=== PATIENT | female | born 1965 | race Caucasian/White ===

== ENCOUNTER 2018-01-25 16:41 | Emergency (ER) | payer MEDICARE, MEDICAID ==
[2018-01-25 17:06] VITALS: BP 110/47
[2018-01-25] MEDS ORDERED: Sodium Chloride 0.9% 10 ML Syringe FLUSH PRN (17:45)
[2018-01-25] MEDS ORDERED: Ondansetron 4 MG/2 ML SDV IVPUSH ONE (17:45)
[2018-01-25] MEDS ORDERED: HYDROmorphone 0.5 MG/0.5 ML SYRINGE IVPUSH ONE ×2 (17:45→20:00)
[2018-01-25] MEDS ORDERED: Sodium Chloride 0.9% 1,000 ML IV ONE (17:46)
--- NOTE | 2018-01-25 17:57 | EDM.PDOC ---
ED HPI GENERAL MEDICAL PROBLEM - General Chief Complaint: Flank Pain Stated Complaint: R SIDE BACK PAIN Time Seen by Provider: 01/25/18 17:45 Source of Information: Reports: Patient History Limitations: Reports: No Limitations - History of Present Illness INITIAL COMMENTS - FREE TEXT/NARRATIVE: Patient is a 52-year-old female presents ED complaining of right lower back pain , right flank pain, and pain into her right loin area. She is mildly nauseated. Bothering all week worse today. She's been taking ibuprofen with little relief. She does have a history kidney stones but states the symptoms are mildly different. She has no pain with urination, increased frequency, decrease amount , or abnormal vaginal discharge. She does have chronic diarrhea withno acute changes with no blood present. She is mildly nauseated with onset with no emesis. There's been no documented fever. She's had her appendix removed. She has old female organs along with the gallbladder. There has been no activities or recent trauma that precipitated this pain. Past medical history includes anxiety, depression, hypothyroid, chronic diarrhea , GERD, kidney stones, bronchitis, and chronic pain. Current medications include Seroquel, Loxitane, tramadol, Lyrica, Prilosec, bladder incontinence Right Flank Pain Score (Numeric/FACES): 8 - Related Data Allergies Allergy/AdvReac Type Severity Reaction Status Date / Time No Known Allergies Allergy Verified 02/21/16 15:14 Home Meds: Home Meds Pregabalin [Lyrica] 100 mg PO TID 02/14/15 [History] Dextran 70/Hypromellose [Artificial Tears] 1 drop OP DAILY PRN 02/21/16 [History ] FLUoxetine HCl [Fluoxetine HCl] 40 mg PO DAILY 02/21/16 [History] Levothyroxine [Synthroid] 50 mcg PO ACBREAKFAST 02/21/16 [History] QUEtiapine Fumarate [Seroquel] 200 mg PO DAILY 02/21/16 [History] traMADol [Ultram] 50 mg PO Q6H PRN 02/21/16 [History] Omeprazole Magnesium [Prilosec Otc] 20 mg PO DAILY 01/25/18 [History] Past Medical History Respiratory History: Reports: Bronchitis, Recurrent Gastrointestinal History: Reports: Chronic Diarrhea, GERD Genitourinary History: Reports: Renal Calculus, UTI, Recurrent Psychiatric History: Reports: Anxiety, Depression Endocrine/Metabolic History: Reports: Hypothyroidism Hematologic History: Reports: Anemia - Past Surgical History GI Surgical History: Reports: Appendectomy Musculoskeletal Surgical History: Reports: Other (See Below) Other Musculoskeletal Surgeries/Procedures:: right total hip replacement Social & Family History - Tobacco Use Smoking Status *Q: Never Smoker Second Hand Smoke Exposure: No - Caffeine Use Caffeine Use: Reports: Tea - Alcohol Use Number of Drinks Per Day: 10 - Recreational Drug Use Recreational Drug Use: No Drug Use in Last 12 Months: No ED ROS GENERAL - Review of Systems Review Of Systems: See Below Constitutional: Denies: Fever, Chills, Malaise, Weakness, Decreased Appetite HEENT: Reports: No Symptoms Respiratory: Reports: No Symptoms Cardiovascular: Reports: No Symptoms GI/Abdominal: Reports: Abdominal Pain (Pain in the right groin), Diarrhea ( Chronic). Denies: Black Stool, Bloody Stool, Decreased Appetite, Hematemesis, Hematochezia, Nausea, Vomiting : Reports: No Symptoms Musculoskeletal: Reports: Back Pain (Right-sided low back pain) Skin: Reports: No Symptoms Neurological: Reports: No Symptoms ED EXAM,LOWER BACK PAIN/INJURY - Physical Exam Exam: See Below Exam Limited By: No Limitations General Appearance: Alert, WD/WN, Moderate Distress Ears: Hearing Grossly Normal Nose: Normal Inspection Throat/Mouth: Normal Voice, No Airway Compromise Head: Atraumatic, Normocephalic Neck: Normal Inspection, Supple Respiratory/Chest: No Respiratory Distress, Lungs Clear, Normal Breath Sounds, No Accessory Muscle Use, Chest Non-Tender Cardiovascular: Normal Peripheral Pulses, Regular Rate, Rhythm GI/Abdominal: Normal Bowel Sounds, Soft, Non-Tender, No Organomegaly Back Exam: No: CVA Tenderness (L), CVA Tenderness (R) Neurological: Alert, Normal Mood/Affect, Normal Dorsiflexion, CN II-XII Intact, Normal Plantar Flexion Psychiatric: Normal Affect, Normal Mood Skin Exam: Warm, Dry, Intact, Normal Color, No Rash Course - Vital Signs Last Recorded V/S: Last Vital Signs Temp 97.8 F 01/25/18 17:04 Pulse 65 01/25/18 17:04 Resp 20 01/25/18 17:04 BP 110/47 L 01/25/18 17:04 Pulse Ox 99 01/25/18 17:04 - Orders/Labs/Meds Orders: Active Orders 24 hr Category Date Time Status Peripheral IV Care [RC] . DIRECTED Care 01/25/18 17:45 Active Sodium Chloride 0.9% [Normal Saline] 1,000 ml Med 01/25/18 17:46 Active IV ONETIME Sodium Chloride 0.9% [Saline Flush] Med 01/25/18 17:45 Active 10 ml FLUSH ASDIRECTED PRN Peripheral IV Insertion Adult [OM.PC] Stat Oth 01/25/18 17:45 Ordered Medication Orders Sodium Chloride (Normal Saline) 1,000 mls @ 250 mls/hr IV ONETIME ONE Stop: 01/25/18 21:45 Last Admin: 01/25/18 18:16 Dose: 250 mls/hr Sodium Chloride (Saline Flush) 10 ml FLUSH ASDIRECTED PRN PRN Reason: Keep Vein Open Last Admin: 01/25/18 18:16 Dose: 10 ml Labs: Laboratory Tests 01/25/18 01/25/18 01/25/18 Range/Units 17:10 18:18 18:18 WBC 6.87 (3.98-10.04) K/mm3 RBC 4.29 (3.98-5.22) M/mm3 Hgb 10.3 L (11.2-15.7) gm/L Hct 32.8 L (34.1-44.9) % MCV 76.5 L (79.4-94.8) fl MCH 24.0 L (25.6-32.2) pg MCHC 31.4 L (32.2-35.5) g/dl RDW Std Deviation 51.4 H (36.4-46.3) fL Plt Count 296 (182-369) K/mm3 MPV 10.5 (9.4-12.3) fl Neut % (Auto) 52.8 (34.0-71.1) % Lymph % (Auto) 36.0 (19.3-51.7) % [place] % (Auto) 10.5 (4.7-12.5) % Eos % (Auto) 0.3 L (0.7-5.8) Baso % (Auto) 0.1 (0.1-1.2) % Neut # (Auto) 3.63 (1.56-6.13) K/mm3 Lymph # (Auto) 2.47 (1.18-3.74) K/mm3 [place] # (Auto) 0.72 H (0.24-0.36) K/mm3 Eos # (Auto) 0.02 L (0.04-0.36) K/mm3 Baso # (Auto) 0.01 (0.01-0.08) K/mm3 Sodium 139 (136-145) mEq/L Potassium 4.4 (3.5-5.1) mEq/L Chloride 105 (98-107) mEq/L Carbon Dioxide 22 (21-32) mEq/L Anion Gap 16.4 H (5-15) BUN 21 H (7-18) mg/dL Creatinine 0.9 (0.55-1.02) mg/dL Est Cr Clr Drug Dosing 71.91 mL/min Estimated GFR (MDRD) > 60 (>60) mL/min BUN/Creatinine Ratio 23.3 H (14-18) Glucose 83 (74-106) mg/dL Calcium 8.2 L (8.5-10.1) mg/dL Total Bilirubin 0.3 (0.2-1.0) mg/dL AST 29 (15-37) U/L ALT 21 (14-59) U/L Alkaline Phosphatase 95 (46-116) U/L C-Reactive Protein < 0.2 (<1.0) mg/dL Total Protein 7.8 (6.4-8.2) g/dl Albumin 3.2 L (3.4-5.0) g/dl Globulin 4.6 gm/dL Albumin/Globulin Ratio 0.7 L (1-2) Urine Color Yellow (Yellow) Urine Appearance Clear (Clear) Urine pH 5.5 (5.0-8.0) Ur Specific [place] 1.025 (1.005-1.030) Urine Protein Negative (Negative) Urine Glucose (UA) Negative (Negative) Urine Ketones Trace H (Negative) Urine Occult Blood Negative (Negative) Urine Nitrite Negative (Negative) Urine Bilirubin Negative (Negative) Urine Urobilinogen 0.2 (0.2-1.0) Ur Leukocyte Esterase Negative (Negative) Urine RBC 0-5 (0-5) /hpf Urine WBC 0-5 (0-5) /hpf Ur Epithelial Cells 20-30 H (0-5) /hpf Urine Bacteria Rare (FEW) /hpf Urine Mucus Not seen (FEW) /hpf Meds: Medications Generic Name Dose Route Start Last Admin Trade Name Freq PRN Reason Stop Dose Admin Sodium Chloride 1,000 mls @ 250 mls/hr 01/25/18 17:46 01/25/18 18:16 Normal Saline IV 01/25/18 21:45 250 mls/hr ONETIME ONE Administration Sodium Chloride 10 ml 01/25/18 17:45 01/25/18 18:16 Saline Flush FLUSH 10 ml ASDIRECTED PRN Administration Keep Vein Open Discontinued Medications Generic Name Dose Route Start Last Admin Trade Name Freq PRN Reason Stop Dose Admin Hydromorphone HCl 0.5 mg 01/25/18 17:45 01/25/18 18:15 Dilaudid IVPUSH 01/25/18 17:46 0.5 mg ONETIME ONE Administration Hydromorphone HCl 0.5 mg 01/25/18 20:00 Dilaudid IVPUSH 01/25/18 20:01 ONETIME ONE Ondansetron HCl 4 mg 01/25/18 17:45 01/25/18 18:16 Zofran IVPUSH 01/25/18 17:46 4 mg ONETIME ONE Administration - Re-Assessments/Exams Free Text/Narrative Re-Assessment/Exam: IV established with normal saline 250 mL per hour, Dilaudid 0.5 mg IVP, and Zofran 4 mg IVP. UA was obtained prior to evaluation trace ketones, epithelial cells 20-30 suggesting contamination. Initial labs and studies will be CBC, chem 14, CRP, and abdomen and pelvis without contrast CT per renal stone protocol. I believe patient may have a kidney stone is passing. CBC and chemistry panel did not reveal any concerning findings. CT the abdomen and pelvis impression: 4.5 cm abnormality within the pelvis most likely due to an adnexal cyst or ovarian cyst. Pelvic ultrasound is recommended which can be completed not emergently to further evaluate. Gallstones or other insult findings. No renal calculi or ureteral dilatation is seen. No discrete ureteral calculus is seen. 1950 Reassessment, patient states she got relief of the pain with the Dilaudid. Pain has slowly increased. Pain is isolated at this point to the right lateral mid back. Patient states now Feels as if it is muscle pain. With gentle palpation there is some pinpoint tenderness noted. This is different from initial examination. Suspect it may be muscle related. Will discharge patient home with instructions as documented. Departure - Departure Time of Disposition: 20:02 Disposition: Home, Self-Care 01 Condition: Good Clinical Impression: Right inguinal pain Low back pain Qualifiers: Chronicity: acute Back pain laterality: right Sciatica presence: without sciatica Qualified Code(s): M54.5 - Low back pain - Discharge Information Instructions: Flank Pain, [id number], Pain Medicine Instructions, Easy-to- Read Referrals: PCP,None [Primary Care Provider] - Forms: ED Department Discharge, ED Return to Work/School Form Additional Instructions: CT abdomen and pelvis revealed 4.5 cm abnormality within the pelvis most likely due to adnexal cyst or ovarian cyst. Pelvic ultrasound is recommended. This is been ordered. Please see a provider at [facility] this week for results. You will be contacted for an appointment this week to have the ultrasound completed. For pain continue to take [place] one tab every 6 hours as needed. Utilize warm compresses and ice in alternating fashion for pain. Utilize Gentle massage to the affected area along with Biofreeze or icy hot as well. Do not drive this evening since receiving a sedative medication. Do not drive while taking the [place]. Return to the ED if you develop any new or worsening symptoms. - My Orders Last 24 Hours: My Active Orders 01/25/18 17:45 Peripheral IV Care [RC] . DIRECTED Sodium Chloride 0.9% [Saline Flush] 10 ml FLUSH ASDIRECTED PRN Peripheral IV Insertion Adult [OM.PC] Stat 01/25/18 17:46 Sodium Chloride 0.9% [Normal Saline] 1,000 ml IV ONETIME - Assessment/Plan Last 24 Hours: My Active Orders 01/25/18 17:45 Peripheral IV Care [RC] . DIRECTED Sodium Chloride 0.9% [Saline Flush] 10 ml FLUSH ASDIRECTED PRN Peripheral IV Insertion Adult [OM.PC] Stat 01/25/18 17:46 Sodium Chloride 0.9% [Normal Saline] 1,000 ml IV ONETIME
--- NOTE | 2018-01-25 18:31 | CT ---
CT abdomen and pelvis Technique: Multiple axial sections were obtained from above the kidneys inferiorly to the pubic symphysis. Intravenous and oral contrast not utilized. Study performed as a ureteral stone protocol. Findings: Minimal portion of the posterior lung bases appear clear. Kidneys show no abnormal calcifications. No ureteral dilatation is seen. No ureteral stone is identified. Some portions of the ureter are not seen within the lower pelvis due to artifact from hip prosthesis. Visualized portions of the lower liver and spleen appears within normal limits. Previous gastric surgery is noted. Slight increased density which is felt compatible with gallstones are seen within the gallbladder. No abnormality is appreciated within the pancreas. Aorta shows no aneurysmal dilatation. No retroperitoneal adenopathy or mesenteric abnormalities are seen. Low-density finding is noted within the mid to right pelvis which measures 4.5 cm most likely due to an adnexal cyst or ovarian cyst. No additional pelvic abnormality is appreciated. Appendix is not visualized. No free fluid or inflammatory change is appreciated. Bone window settings were reviewed which shows severe disc space narrowing at L3-L4 and L4-L5 with vacuum phenomena and degenerative endplate sclerosis. Posterior and anterior osteophytes are seen at these levels. Degenerative change is also noted within the apophyseal joints at these levels. Impression: 1. 4.5 cm abnormality within the pelvis most likely due to adnexal cyst or ovarian cyst. Pelvic ultrasound is recommended (which can be done non-emergently) to further evaluate. 2. Gallstones and other incidental findings. 3. No renal calculi or ureteral dilatation is seen. No discrete ureteral calculus is seen. Diagnostic code #9
== END 2018-01-25 20:30 | disposition home or self-care (01) ==
LOC: JD.ED 16:41
DX: M54.5 Low back pain (principal); R10.31 Right lower quadrant pain; M54.6 Pain in thoracic spine; K21.9 Gastro-esophageal reflux disease without esophagitis; F32.9 Major depressive disorder, single episode, unspecified; E03.9 Hypothyroidism, unspecified; Z96.641 Presence of right artificial hip joint; Z79.899 Other long term (current) drug therapy
CPT/HCPCS: 36415; 74176; 80053; 81001; 85025; 86140; 96361; 96374; 96375; 96376; 99284; J1170; J2405; J7040; J7050

== ENCOUNTER 2020-01-13 09:41 | Day surgery (SDC) | payer MEDICARE, MEDICAID ==
[~2020-01-13 09:41] MED LIST: Lidocaine 1%/Sod Bicarbonate in NS 8.4% 1 ML Syringe IDERM PRN; Sodium Chloride 0.9% 10 ML Syringe FLUSH PRN
[2020-01-13] MEDS ORDERED: Propofol 200 MG/20 ML SDV ONE (09:54)
[2020-01-13] MEDS ORDERED: Lidocaine 1% 6 ML ONE (09:55)
[2020-01-13] MEDS ORDERED: fentaNYL 250 MCG/5 ML SDV ONE (09:55)
[2020-01-13] MEDS ORDERED: Midazolam 1 MG/ML 2 ML SDV ONE ×2 (09:55→11:37)
[2020-01-13] MEDS: Lactated Ringers 1,000 ML IV SCH ×2 (10:35→13:30)
[2020-01-13] MEDS ORDERED: Bupivacaine 0.5%/EPINEPHrine 1:200,000 50 ML MDV ONE (10:48)
[2020-01-13] MEDS ORDERED: Scopolamine 1.5 MG Transdermal Patch TOP ONE (11:22)
--- NOTE | 2020-01-13 11:28 | PCM.PREANE ---
Preanesthetic Assessment - Procedure Proposed Procedure: EGD and Laparoscopic Cholecystectomy - Anesthesia/Transfusion/Family Hx Anesthesia History: Prior Anesthesia Reaction Type of Anesthesia Reaction: Excessive Nausea/Vomiting Family History of Anesthesia Reaction: No Type of Transfusion Reactions: Reports: Unknown - Review of Systems General: No Symptoms Pulmonary: No Symptoms Cardiovascular: No Symptoms Gastrointestinal: Abdominal Pain, Nausea, Other (GERD. Gastric bypass surgery 5 years ago. Gastric Ulcer following bypass surgery. ) Neurological: Pre-Existing Deficit (Fibromyalgia) Other: Reports: Thyroid Problems (Hypothyroidism), Depression, Anxiety - Physical Assessment NPO Status Date: 01/12/20 NPO Status Time: 19:00 Vital Signs: Last Vital Signs Temp 36.7 C 01/13/20 10:20 Pulse 58 L 01/13/20 10:20 Resp 16 01/13/20 10:20 BP 110/69 01/13/20 10:20 Pulse Ox 96 01/13/20 10:20 Height: 1.7 m Weight: 93.44 kg ASA Class: 2 Mental Status: Alert & Oriented x3 Airway Class: Mallampati = 2 Dentition: Reports: Normal Dentition Thyro-Mental Finger Breadths: 3 Mouth Opening Finger Breadths: 3 ROM/Head Extension: Full Lungs: Clear to Auscultation, Normal Respiratory Effort Cardiovascular: Regular Rate, Regular Rhythm - Lab Values: Laboratory Last Values Urine HCG, Qual Negative (NEGATIVE) 01/13/20 10:17 - Allergies Allergies/Adverse Reactions: Allergies Allergy/AdvReac Type Severity Reaction Status Date / Time acetaminophen [From [place]] Allergy Hives Verified 01/12/20 15:56 hydrocodone [From [place]] Allergy Hives Verified 01/12/20 15:56 - Acknowledgements Anesthesia Type Planned: General Anesthesia Pt an Appropriate Candidate for the Planned Anesthesia: Yes Alternatives and Risks of Anesthesia Discussed w Pt/Guardian: Yes Pt/Guardian Understands and Agrees with Anesthesia Plan: Yes PreAnesthesia Questionnaire HEENT History: Reports: Allergic Rhinitis, Impaired Vision Cardiovascular History: Reports: None Respiratory History: Reports: Bronchitis, Recurrent Gastrointestinal History: Reports: Chronic Diarrhea, GERD, Other (See Below) Other Gastrointestinal History: epigastric pain, gastric ulcer Genitourinary History: Reports: Renal Calculus, UTI, Recurrent, Other (See Below ) Other Genitourinary History: pessary maintenence, rectocele, frequency 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 (See Below) Other OB/BYN History: ovarian cyst, menorrhagia Musculoskeletal History: Reports: Arthritis, RA Neurological History: Reports: Other (See Below) Other Neuro History: dizziness, low back pain Psychiatric History: Reports: Anxiety, Depression Endocrine/Metabolic History: Reports: Hypothyroidism Hematologic History: Reports: Anemia, Iron Deficiency Immunologic History: Reports: SLE Oncologic (Cancer) History: Reports: None Dermatologic History: Reports: Other (See Below) Other Dermatologic History: itching, pruritis - Past Surgical History Head Surgeries/Procedures: Reports: None HEENT Surgical History: Reports: Cataract Surgery, Naso-Sinus Surgery Cardiovascular Surgical History: Reports: None Respiratory Surgical History: Reports: None GI Surgical History: Reports: Appendectomy, Bariatric Procedure Female Surgical History: Reports: Section Endocrine Surgical History: Reports: None Neurological Surgical History: Reports: None Musculoskeletal Surgical History: Reports: Hip Replacement, Other (See Below) Other Musculoskeletal Surgeries/Procedures:: right total hip replacement Oncologic Surgical History: Reports: None Dermatological Surgical History: Reports: None - SUBSTANCE USE Smoking Status *Q: Former Smoker - HOME MEDS Home Medications: Home Meds Pregabalin [Lyrica] 100 mg PO TID 02/14/15 [History] FLUoxetine HCl [Fluoxetine HCl] 80 mg PO DAILY 02/21/16 [History] Levothyroxine [Synthroid] 50 mcg PO ACBREAKFAST 02/21/16 [History] traMADol [Ultram] 50 mg PO Q6H PRN 02/21/16 [History] Omeprazole Magnesium [Prilosec Otc] 20 mg PO DAILY 01/25/18 [History] Iron Polysaccharide Complex/D3 [Novaferrum 125 Liquid] 5 ml PO DAILY 01/12/20 [ History] Mirabegron [Myrbetriq] 50 mg PO DAILY 01/12/20 [History] hydrOXYzine HCL [hydrOXYzine] 25 - 50 mg PO Q4H PRN 01/12/20 [History] - CURRENT (IN HOUSE) MEDS Current Meds: Current Medications Lactated Ringer's (Ringers, Lactated) 1,000 mls @ 125 mls/hr IV ASDIRECTED [place]ICA Stop: 01/13/20 23:00 Last Admin: 01/13/20 10:35 Dose: 125 mls/hr Lidocaine/Sodium Bicarbonate (Buffered Lidocaine 1% In Ns 8.4%) 0.25 ml IDERM ONETIME PRN PRN Reason: Prior to IV Start Stop: 01/13/20 18:00 Last Admin: 01/13/20 10:34 Dose: 0.25 ml Sodium Chloride (Saline Flush) 10 ml FLUSH ASDIRECTED PRN PRN Reason: Keep Vein Open Stop: 01/13/20 18:00 Discontinued Medications Bupivacaine HCl/Epinephrine Bitart (Marcaine 0.5%/Epinephrine 1:200,000) Confirm Administered Dose 50 ml .ROUTE .STK-MED ONE Stop: 01/13/20 10:49 Fentanyl (Sublimaze) Confirm Administered Dose 250 mcg .ROUTE .STK-MED ONE Stop: 01/13/20 09:56 Lidocaine HCl (Xylocaine-Mpf 1%) Confirm Administered Dose 6 mls @ as directed .ROUTE .STK-MED ONE Stop: 01/13/20 09:56 Midazolam HCl (Versed 1 Mg/Ml) Confirm Administered Dose 2 mg .ROUTE .STK-MED ONE Stop: 01/13/20 09:56 Propofol (Diprivan 20 Ml) Confirm Administered Dose 200 mg .ROUTE .STK-MED ONE Stop: 01/13/20 09:55
[2020-01-13] MEDS ORDERED: Succinylcholine/Normal Saline 100 MG/5 ML Syringe ONE (11:39)
[2020-01-13] MEDS ORDERED: HYDROmorphone 0.5 MG/0.5 ML Syringe ONE (11:39)
[2020-01-13] MEDS ORDERED: ceFAZolin 1 GM Vial ONE (11:44)
[2020-01-13] MEDS ORDERED: Lactated Ringers 1,000 ML ONE (12:00)
[2020-01-13] MEDS ORDERED: HYDROmorphone 0.5 MG/0.5 ML Syringe IVPUSH PRN (12:13)
[2020-01-13] MEDS ORDERED: fentaNYL 100 MCG/2 ML SDV IVPUSH PRN (12:13)
[2020-01-13] MEDS ORDERED: Ondansetron 4 MG/2 ML SDV ONE (12:19)
[2020-01-13] MEDS ORDERED: Neostigmine Methylsulfate 1 MG/ML 5 ML Syringe ONE (12:42)
--- NOTE | 2020-01-13 13:02 | PCM.PRNOTE ---
- Free Text/Narrative Note: Operative Report Operation: laparoscopic cholecystectomy followed by diagnostic esophagogastrojejunoscopy Date: 01/13/2020 Attending Surgeon: Shemar Schaeffer MD Indication for Surgery: chronic episodic epigastric pain with evidence of gallstone disease on imaging in patient with history of Bianca en Y gastric bypass Preoperative antibiotics: 2 g Ancef IV VTE prophylaxis: SCDs Estimated Blood Loss: 10 cc Findings: chronic mild inflammation of the gallbladder with sizeable gallstones. Critical view obtained. There was evidence of marginal ulceration at the gastrojejunostomy on endoscopy. Biopsy was obtained. There was an odd finding of a bridge of gastric tissue, with lumen on either side passing inferiorly, meeting below the bridge in what appeared to only be the distal portion of the gastric pouch. Detailed Report: The patient underwent general endotracheal anesthesia after being placed supine on the operating table and initial timeout. The abdomen was prepped and draped in sterile fashion. A pre-incision timeout was performed confirming the patient s identity and the operation to be performed. A Veress needle was inserted into the abdominal cavity below the left costal margin along the mid-clavicular line. The abdomen was insufflated with CO2 to 15 mm Hg. Gas was aspirated below the umbilicus with a syringe in order to ensure safe placement of a 5 mm bladed laparoscopic port. The 5mm 30 degree laparoscope was then inserted and viscera inspected. The gallbladder appeared mildly chronically inflamed. Two additional 5 mm ports were placed along the right subcostal region under direct vision with the laparoscope, and a 12 mm port was placed at the subxiphoid region. The gallbladder was grasped at the fundus with a locking grasper and retracted anteriorly and superiorly, exposing the infundibulum. This was grasped with the surgeons left hand grasper and retracted laterally. The hook electrode was used to open the overlying peritoneum, and this plane of dissection was developed along the edges of the gallbladder at its interface with the liver bed. A combination of hook electrode, blunt dissection with the suction information director and laparoscopic [place] dissector, and the [place] grasper were used to carefully expose and skeletonize the cystic duct and artery. A critical view of safety was obtained. The artery was divided with monopolar energy; the proximal stump was visible and pulsatile but there was no hemorrhage. Metal clips were then placed on both the artery stump and the cystic duct. The duct was transected with laparoscopic scissors between the clips. The hook was then used to dissect the gallbladder free from its attachment to the liver. The specimen was then placed in an Endocatch bag and removed through the subxiphoid port. The liver bed was inspected and appeared hemostatic. The larger subxiphoid port was closed at the level of the fascia with vicryl suture using the PMI laparoscopic suture passer. Pneumoperitoneum was then released. All skin incisions were then closed with placement of subcuticular vicryl suture and dressed with dermabond. A total of 30 cc 0.5% marcaine with epinephrine was used for local anesthesia at the incision sites. Next, upper endoscopy was performed. The endoscope was inserted at the mouth and advanced well beyond the gastrojejunal anastomosis into the efferent limb. The small bowel mucosa appeared normal. The the site of anastomosis, a small discrete marginal ulcer was appreciated. A biopsy near this site was obtained. 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 The view from proximal appeared to show two lumens at a branch point, but when the scope was advanced through the smaller opening it clearly met up with the space of the distal gastric pouch, just below the tissue bridge. There was no apparent fistula otherwise. I biopsied this distal portion of the pouch to confirm that it was indeed gastric. There was a small hiatal hernia noted, and the distal esophageal mucosa appeared grossly normal. The patient tolerated the operation well, was extubated in the operating room and transferred to the PACU for routine post-anesthesia care. Shemar Schaeffer MD General Surgery
--- NOTE | 2020-01-13 13:07 | PCM.POSTAN ---
POST ANESTHESIA ASSESSMENT - MENTAL STATUS Mental Status: Alert, Oriented - VITAL SIGNS Vital Signs: Last Vital Signs Temp 97.4 F 01/13/20 12:56 Pulse 67 01/13/20 12:56 Resp 15 01/13/20 12:56 BP 111/53 L 01/13/20 12:56 Pulse Ox 95 01/13/20 12:56 - RESPIRATORY Respiratory Status: Respiratory Rate WNL, Airway Patent, O2 Saturation Stable, Supplemental Oxygen - CARDIOVASCULAR CV Status: Pulse Rate WNL, Blood Pressure Stable - GASTROINTESTINAL GI Status: [place] - POST OP HYDRATION Hydration Status: Adequate & Stable
[2020-01-13] MEDS ORDERED: Prochlorperazine 10 MG/2 ML SDV IVPUSH PRN (13:14)
--- NOTE | 2020-01-13 14:53 | PCM48HPAN ---
Post Anesthesia Note - EVALUATION WITHIN 48HRS OF ANESTHETIC Vital Signs in Normal Range: Yes Patient Participated in Evaluation: Yes Respiratory Function Stable: Yes Airway Patent: Yes Cardiovascular Function Stable: Yes Hydration Status Stable: Yes Pain Control Satisfactory: Yes Nausea and Vomiting Control Satisfactory: Yes Mental Status Recovered: Yes Vital Signs: Last Vital Signs Temp 98.1 F 01/13/20 14:10 Pulse 43 L 01/13/20 14:25 Resp 10 L 01/13/20 14:25 BP 110/56 L 01/13/20 14:25 Pulse Ox 96 01/13/20 14:25 - COMMENTS/OBSERVATIONS Free Text/Narrative:: Patient is being transferred for extended floor recovery with supplementary oxygen until fully awake.
[2020-01-13 16:41] VITALS: BP 120/65; PULSE 44
== END 2020-01-13 16:38 | disposition home or self-care (01) ==
LOC: JD.SDS 09:41
PROVIDERS: ATTEND Surgery
DX: K80.10 Calculus of gallbladder with chronic cholecystitis without obstruction (principal); K29.50 Unspecified chronic gastritis without bleeding; K25.7 Chronic gastric ulcer without hemorrhage or perforation; K44.9 Diaphragmatic hernia without obstruction or gangrene; K21.9 Gastro-esophageal reflux disease without esophagitis; D50.9 Iron deficiency anemia, unspecified; F41.8 Other specified anxiety disorders; R35.0 Frequency of micturition; E03.9 Hypothyroidism, unspecified; M16.10 Unilateral primary osteoarthritis, unspecified hip; Z87.891 Personal history of nicotine dependence; Z98.84 Bariatric surgery status; Z88.8 Allergy status to other drugs, medicaments and biological substances; Z79.899 Other long term (current) drug therapy
CPT/HCPCS: 43239; 47562; 81025; A9270; J0330; J0690; J0780; J1170; J2001; J2250; J2405; J2704; J2710; J3010; J3490; J7120; 00790; 88304; 88305

== ENCOUNTER 2020-12-26 06:51 | Day surgery (SDC) | payer MEDICARE, MEDICAID ==
[~2020-12-26 06:51] MED LIST changes: +Lactated Ringers 1,000 ML IV SCH
[2020-12-26] MEDS ORDERED: Midazolam 1 MG/ML 2 ML SDV ONE (07:00)
[2020-12-26] MEDS ORDERED: Ondansetron 4 MG/2 ML SDV ONE (07:00)
[2020-12-26] MEDS ORDERED: fentaNYL 250 MCG/5 ML SDV ONE (07:00)
[2020-12-26] MEDS ORDERED: Propofol 200 MG/20 ML SDV ONE (07:00)
[2020-12-26] MEDS ORDERED: ceFAZolin 1 GM Vial ONE (07:00)
[2020-12-26] MEDS ORDERED: Lidocaine 1% 4 ML ONE (07:00)
[2020-12-26] MEDS ORDERED: Sodium Chloride 0.9% 50 ML SDV ONE (07:15)
[2020-12-26] MEDS ORDERED: Lidocaine 1% with EPINEPHrine 1:100,000 20 ML MDV ONE (07:15)
--- NOTE | 2020-12-26 07:22 | PCM.PREANE ---
Preanesthetic Assessment - Procedure Proposed Procedure: bladder sling- mid urethral - Anesthesia/Transfusion/Family Hx Anesthesia History: Prior Anesthesia Without Reaction Family History of Anesthesia Reaction: No Transfusion History: No Prior Transfusion(s) Type of Transfusion Reactions: Reports: Unknown - Review of Systems General: No Symptoms Pulmonary: No Symptoms Cardiovascular: No Symptoms Gastrointestinal: No Symptoms Neurological: No Symptoms Other: Reports: Easy Bleeding, Easy Bruising, Thyroid Problems, Depression, Anxiety - Physical Assessment NPO Status Date: 12/25/20 NPO Status Time: 23:30 Vital Signs: 116/73 72 95% 16 97.7 Height: 5 ft 8 in Weight: 99 kg ASA Class: 2 Mental Status: Alert & Oriented x3 Airway Class: Mallampati = 1 Dentition: Reports: Normal Dentition Thyro-Mental Finger Breadths: 3 Mouth Opening Finger Breadths: 3 ROM/Head Extension: Full Lungs: Clear to Auscultation, Normal Respiratory Effort Cardiovascular: Regular Rate, Regular Rhythm - Allergies Allergies/Adverse Reactions: Allergies Allergy/AdvReac Type Severity Reaction Status Date / Time acetaminophen [From [facility]] Allergy Hives Verified 12/25/20 13:12 hydrocodone [From [facility]] Allergy Hives Verified 12/25/20 13:12 - Blood Blood Available: No - Acknowledgements Anesthesia Type Planned: General Anesthesia Pt an Appropriate Candidate for the Planned Anesthesia: Yes Alternatives and Risks of Anesthesia Discussed w Pt/Guardian: Yes Pt/Guardian Understands and Agrees with Anesthesia Plan: Yes PreAnesthesia Questionnaire HEENT History: Reports: Allergic Rhinitis, Impaired Vision Cardiovascular History: Reports: None Respiratory History: Reports: Bronchitis, Recurrent Gastrointestinal History: Reports: GERD, Other (See Below) Other Gastrointestinal History: epigastric pain, gastric ulcer Genitourinary History: Reports: Renal Calculus, UTI, Recurrent, Other (See Below) Other Genitourinary History: pessary maintenence, rectocele, frequency TOW PICKER History: Reports: Other (See Below) Other OB/BYN History: ovarian cyst, menorrhagia, hot flashes, stress urinary incontinence, thickened endometrium, frequnecy, urgerncy, vaginal atrophy Musculoskeletal History: Reports: Arthritis, RA Neurological History: Reports: Other (See Below) Other Neuro History: dizziness, low back pain Psychiatric History: Reports: Anxiety, Depression, Other (See Below) (bipolar) Endocrine/Metabolic History: Reports: Hypothyroidism, Obesity/BMI 30+ Hematologic History: Reports: Anemia, Iron Deficiency Immunologic History: Reports: SLE Oncologic (Cancer) History: Reports: None Dermatologic History: Reports: Other (See Below) Other Dermatologic History: itching, pruritis - Infectious Disease History Infectious Disease History: Reports: None - Past Surgical History Head Surgeries/Procedures: Reports: None HEENT Surgical History: Reports: Cataract Surgery, Naso-Sinus Surgery Cardiovascular Surgical History: Reports: None Respiratory Surgical History: Reports: None GI Surgical History: Reports: Appendectomy, Bariatric Procedure Female Surgical History: Reports: Section Endocrine Surgical History: Reports: None Neurological Surgical History: Reports: None Musculoskeletal Surgical History: Reports: Hip Replacement, Other (See Below) Other Musculoskeletal Surgeries/Procedures:: right total hip replacement Oncologic Surgical History: Reports: None Dermatological Surgical History: Reports: None - SUBSTANCE USE Tobacco Use Status *Q: Former Tobacco User Tobacco Use Within Last Twelve Months: No Second Hand Smoke Exposure: No Days Per Week of Alcohol Use: 1 Recreational Drug Use History: No - HOME MEDS Home Medications: Home Meds Pregabalin [Lyrica] 100 mg PO TID 02/14/15 [History] FLUoxetine HCl [Fluoxetine HCl] 80 mg PO DAILY 02/21/16 [History] Levothyroxine [Synthroid] 50 mcg PO ACBREAKFAST 02/21/16 [History] traMADol [Ultram] 50 mg PO Q6H PRN 02/21/16 [History] Omeprazole Magnesium [Prilosec Otc] 20 mg PO DAILY 01/25/18 [History] Iron Polysaccharide Complex/D3 [Novaferrum 125 Liquid] 5 ml PO DAILY 01/12/20 [History] Mirabegron [Myrbetriq] 50 mg PO DAILY 01/12/20 [History] hydrOXYzine HCL [hydrOXYzine] 25 - 50 mg PO Q4H PRN 01/12/20 [History] Estrogen,Con/M-Progest Acet [Premphase 0.625-5 MG] 1 tab PO DAILY 12/25/20 [H istory] QUEtiapine Fumarate [Seroquel] 300 mg PO DAILY 12/25/20 [History] - CURRENT (IN HOUSE) MEDS Current Meds: Current Medications Lactated Ringer's (Ringers, Lactated) 1,000 mls @ 125 mls/hr IV ASDIRECTED MICA Stop: 12/26/20 23:00 Lidocaine/Sodium Bicarbonate (Buffered Lidocaine 1% In Ns 8.4%) 0.25 ml IDERM ONETIME PRN PRN Reason: Prior to IV Start Stop: 12/26/20 18:00 Sodium Chloride (Saline Flush) 10 ml FLUSH ASDIRECTED PRN PRN Reason: Keep Vein Open Stop: 12/26/20 18:00 Discontinued Medications Cefazolin Sodium (Ancef) Confirm Administered Dose 2 gm .ROUTE .STK-MED ONE Stop: 12/26/20 07:01 Fentanyl (Sublimaze) Confirm Administered Dose 250 mcg .ROUTE .STK-MED ONE Stop: 12/26/20 07:01 Lidocaine HCl (Xylocaine-Mpf 1%) Confirm Administered Dose 4 mls @ as directed .ROUTE .STK-MED ONE Stop: 12/26/20 07:01 Midazolam HCl (Versed 1 Mg/Ml) Confirm Administered Dose 2 mg .ROUTE .STK-MED ONE Stop: 12/26/20 07:01 Ondansetron HCl (Zofran) Confirm Administered Dose 4 mg .ROUTE .STK-MED ONE Stop: 12/26/20 07:01 Propofol (Diprivan 20 Ml) Confirm Administered Dose 200 mg .ROUTE .STK-MED ONE Stop: 12/26/20 07:01
[2020-12-26] MEDS ORDERED: Dexamethasone 4 MG/ML 5 ML MDV ONE (08:02)
[2020-12-26] MEDS ORDERED: HYDROmorphone 0.5 MG/0.5 ML Syringe IVPUSH PRN (08:04)
[2020-12-26] MEDS ORDERED: fentaNYL 100 MCG/2 ML SDV IVPUSH PRN (08:04)
[2020-12-26] MEDS ORDERED: Ondansetron 4 MG/2 ML SDV IVPUSH PRN ×2 (08:04→08:37)
[2020-12-26] MEDS ORDERED: Ketorolac 30 MG/ML SDV ONE (08:18)
--- NOTE | 2020-12-26 08:42 | PCM.OPNOTE ---
- General Post-Op/Procedure Note Date of Surgery/Procedure: 12/26/20 Operative Procedure(s): Subfascial mid urethral sling Findings: Patient is a grade 1 cystocele, grade 1 rectocele. Slightly atrophic vaginal epithelium. Pre Op Diagnosis: Stress urinary incontinence Post-Op Diagnosis: Same Anesthesia Technique: General LMA Other Anesthesia Type: Quarter percent with epinephrinetotal of 15 cc local Primary Surgeon: Brody Mccann Secondary Surgeon: Fabien Mancilla Anesthesia Provider: [place] Reason Youth Coordinator Was Necessary: Retraction, assistance, patient safety, quality of care. Fluid Replacement, Intraop: 800 Output, Urine Amount: 60 EBL in mLs: 5 Drain/Tube Comments:: Rubber catheter was used to drain the bladder to begin the procedure and to fill the bladder with normal saline at the end of the procedure. Complications: None Condition: Good Free Text/Narrative:: Surgery duration: 18 minutes Procedure: The patient was taken the operating room and placed in supine position on the operating table. She was adequately consented for the procedure. She was given 2 g of Ancef preoperatively for infection prophylaxis and had sequential compression stockings in place for DVT prophylaxis. She had voided medical receptionist biller to the operating room. She was given general LMA anesthesia. She was placed in the dorsal lithotomy position. Her bladder was again drained with a red rubber catheter. A 60 cc of normal urine were removed. The epithelium overlying the urethra was grasped approximately 1 cm from the urethral meatus and approximately 2 cm cephalad from there with Allis clamps. The area of the skin overlying the medial aspect of the obturator foramen on each side just posterior to the origin the abductor longus muscle was marked with a marking pen. These 2 areas and the sub-fascial layer of the vaginal were then infiltrated with lidocaine quarter percent with epinephrine total of approximately 15 mL was used. Incisions made in the epithelium overlying the urethra and 2 small stab wounds 3 mm in length were made in the 2 areas of the panty line of the patient. The subfascial planes were adequately dissected bilaterally to allow placement of the mesh. The helical adapter was then placed through the obturator on patient's left side, then brought out through the vaginal subfascial plane. Mesh was attached to it and then was pulled back through the obturator foramen. Same was done on the right side. Mesh was then snugged up to urethra using a 15 mm cigar dilator as a spacer to place the mesh in a tension-free position. At this point the mesh was cut off at the skin surface and the dilator was removed. The midline epithelium was closed with a short running suture of 3-0 Monocryl. Skin incisions were closed with Dermabond skin glue. These bladder was filled with approximately 240 cc of normal saline to facilitate voiding and therefore discharged home. The patient was returned to supine position, awakened from general endotracheal anesthesia and was discharged from operating room in good condition
--- NOTE | 2020-12-26 08:48 | PCM.POSTAN ---
POST ANESTHESIA ASSESSMENT - MENTAL STATUS Mental Status: Alert, Oriented - VITAL SIGNS Vital Signs: Last Vital Signs Temp 97.7 F 12/26/20 06:55 Pulse 72 12/26/20 06:55 Resp 16 12/26/20 06:55 BP 116/73 12/26/20 06:55 Pulse Ox 95 12/26/20 06:55 0840 114/54 93% 97.3 15 62 - RESPIRATORY Respiratory Status: Respiratory Rate WNL, Airway Patent, O2 Saturation Stable, Supplemental Oxygen - CARDIOVASCULAR CV Status: Pulse Rate WNL, Blood Pressure Stable - GASTROINTESTINAL GI Status: No Symptoms - PAIN Pain Score: 5 (complains of left hip pain- medicated) - POST OP HYDRATION Hydration Status: Adequate & Stable
[2020-12-26 09:13] VITALS: PULSE 55
--- NOTE | 2020-12-26 09:44 | PCM48HPAN ---
Post Anesthesia Note - EVALUATION WITHIN 48HRS OF ANESTHETIC Vital Signs in Normal Range: Yes Patient Participated in Evaluation: Yes Respiratory Function Stable: Yes Airway Patent: Yes Cardiovascular Function Stable: Yes Hydration Status Stable: Yes Pain Control Satisfactory: Yes Nausea and Vomiting Control Satisfactory: Yes Mental Status Recovered: Yes Vital Signs: Last Vital Signs Temp 97.8 F 12/26/20 09:10 Pulse 55 L 12/26/20 09:10 Resp 11 L 12/26/20 09:10 BP 103/62 12/26/20 09:10 Pulse Ox 99 12/26/20 09:10 Feels fine. Hip feels better.
[2020-12-26 10:12] VITALS: BP 103/82
[2020-12-26] MEDS ORDERED: Ketorolac 30 MG/ML SDV IVPUSH SCH (15:00)
== END 2020-12-26 09:58 | disposition home or self-care (01) ==
LOC: JD.SDS 06:51
PROVIDERS: ATTEND Obstetrics & Gynecology
DX: N39.46 Mixed incontinence (principal); N81.11 Cystocele, midline; N81.6 Rectocele; E03.9 Hypothyroidism, unspecified; K21.9 Gastro-esophageal reflux disease without esophagitis; D50.9 Iron deficiency anemia, unspecified; R35.0 Frequency of micturition; N95.2 Postmenopausal atrophic vaginitis; E66.9 Obesity, unspecified; Z88.5 Allergy status to narcotic agent; Z79.899 Other long term (current) drug therapy; Z79.890 Hormone replacement therapy; Z98.890 Other specified postprocedural states; Z87.891 Personal history of nicotine dependence; Z68.33 Body mass index [BMI] 33.0-33.9, adult
CPT/HCPCS: 00860; 57288; C1771; J0690; J1100; J1885; J2001; J2250; J2405; J2704; J3010; J7120

== ENCOUNTER 2023-11-11 08:30 | Day surgery (SDC) | payer MEDICARE, MEDICAID ==
[~2023-11-11 08:30] MED LIST changes: -Lidocaine 1%/Sod Bicarbonate in NS 8.4% 1 ML Syringe IDERM PRN; +Sodium Chloride 0.9% 10 ML Syringe FLUSH SCH
[2023-11-11] MEDS ORDERED: Promethazine 25 MG/ML SDV IM ONE (09:34)
[2023-11-11] MEDS ORDERED: Ondansetron 4 MG/2 ML SDV IVPUSH ONE (09:34)
[2023-11-11] MEDS ORDERED: Propofol 200 MG/20 ML SDV ONE ×2 (10:03→10:04)
[2023-11-11] MEDS ORDERED: Lidocaine 1% 4 ML ONE (10:37)
[2023-11-11 12:07] VITALS: BP 126/72; PULSE 56
== END 2023-11-11 11:44 | disposition home or self-care (01) ==
LOC: JD.SDS 08:30
PROVIDERS: ATTEND Surgery
DX: Z12.11 Encounter for screening for malignant neoplasm of colon (principal); D12.2 Benign neoplasm of ascending colon; K64.8 Other hemorrhoids; F41.9 Anxiety disorder, unspecified; F31.9 Bipolar disorder, unspecified; K21.9 Gastro-esophageal reflux disease without esophagitis; E03.9 Hypothyroidism, unspecified; E66.9 Obesity, unspecified; Z68.41 Body mass index [BMI] 40.0-44.9, adult; Z87.891 Personal history of nicotine dependence; Z79.890 Hormone replacement therapy; Z79.899 Other long term (current) drug therapy; Z88.5 Allergy status to narcotic agent
CPT/HCPCS: 00811; 88305; J2704; J3490; J7120